=== PATIENT | female | born 1975 | race Caucasian/White ===

== ENCOUNTER → 2024-01-29 13:33 | Outpatient (REF) | payer OTHER, SELFPAY | LOC: HWRAD 13:33 | PROVIDERS: ATTENDING PHYSICIAN Family Medicine | DX: D17.23 Benign lipomatous neoplasm of skin and subcutaneous tissue of right leg (principal); R22.41 Localized swelling, mass and lump, right lower limb | CPT/HCPCS: 76882 ==

== ENCOUNTER 2024-11-16 15:36 | Emergency (ER) | payer OTHER, SELFPAY ==
[2024-11-16 15:41] VITALS: BP 142/90
[2024-11-16 16:19] LABS: % Basophils 1.1 % (0-2); % Immature Granulocytes 0.1 % (0-0.5); % Lymphocytes 20.2 % (20.5-51.1); % Monocytes 6.9 % (1.7-9.3); % Neutrophils 70.7 % (42.2-75.2); Absolute Basophils 0.1 10^3/uL (0-0.2); Absolute Eosinophils 0.1 10^3/uL (0-0.7); Absolute Lymphocytes 1.6 10^3/uL (1.2-3.4); Absolute Monocytes 0.5 10^3/uL (0.1-0.6); Absolute Neutrophils 5.6 10^3/uL (1.4-6.5); Hemoglobin 13.7 g/dL (12.0-16.0); Mean Corp Hgb Conc. 33.4 g/dL (33.0-37.0); Mean Corpuscular Hgb 29.7 pg (27.0-31.0); Mean Corpuscular Volume 88.7 fL (81.0-99.0); Mean Platelet Volume 11.1 fL (7.4-10.4); Nucleated Red Blood Cells % 0 %; Platelet Count 238 10^3/uL (130-400); Red Blood Cell Count 4.62 10^6/uL (4.20-5.40); Red Cell Dist. Width 13.4 % (11.5-14.5); White Blood Cell Count 7.9 10^3/uL (4.8-10.8)
[2024-11-16 16:31] LABS: AST (SGOT) 25 U/L (14-36); Albumin 4.7 g/dl (3.5-5.0); Alkaline Phosphatase 70 U/L (38-126); Blood Urea Nitrogen 14 mg/dl (7-17); Carbon Dioxide 27 mmol/L (22-30); Chloride 107 mmol/L (98-107); Glucose 107 mg/dl (70-99); INR 1.09; PT 14.4 Sec (11.4-14.6); Sodium 142 mmol/L (135-145); Total Bilirubin 0.6 mg/dl (0.2-1.3); Total Protein 7.5 g/dl (6.3-8.2); eGFR > 60.00
[2024-11-16 16:32] LABS: APTT 28.1 Sec (23.4-35.0)
[2024-11-16 16:41] LABS: ALT (SGPT) 18 U/L (0-35); Calcium 10.4 mg/dl (8.4-10.2)
[2024-11-16 16:43] LABS: Troponin I < 0.012 ng/ml
[2024-11-16 16:56] VITALS: BP 145/89
[2024-11-16 17:00] VITALS: BP 143/91
[2024-11-16 17:52] LABS: D-Dimer 0.88 ug/mlFEU (0.00-0.50)
[2024-11-16 18:00] VITALS: BP 139/92
--- NOTE | 2024-11-16 18:23 | ED.GENMED ---
History of Present Illness
General
Chief Complaint: Chest Pain
Source: patient
Exam Limitations: none
Time Seen by Provider: 11/16/24 18:05
History of Present Illness
History of Present Illness:
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 Patient returned yesterday from a 10-day trip to [place]. She forgot to take her Eliquis with her on the trip. She started to experience
some indigestion in the center of her chest with some nausea yesterday while she was still on the plane. The symptoms continued today and she is now experiencing some shortness of breath with exertion. Symptoms feel somewhat similar to when she
had a pulmonary embolus in the past which she decided to come to the ED. Her last PE was about 10 years ago. She denies any calf pain or leg swelling.
Past History
Past History
ED Past Medical History: Other (DVT)
ED Past Surgical History: None
Social History
Tobacco: Non-smoker
Alcohol: None
Phy Exam
General Physical Exam
General Presentation: well appearing and no apparent distress
General Skin: warm and dry
General Habitus: normal
General Mental: alert
ENT Exam
ENT Exam: normocephalic
Cardiovascular Exam
Cardiovascular Exam: regular rate/rhythm, no edema and no murmur
Pulmonary Exam
Pulmonary Exam: lungs clear, no respiratory distress, no rales, no crackles, no rhonchi and no wheezing
Gastrointestinal Exam
Gastrointestinal Exam: non tender, soft and non distended
Neurological Exam
Neurological Exam: alert
Claus Coma Scale
Eye Opening: Spontaneous
Verbal Response: Oriented
Motor Response: Obeys Commands
GCS Total Score: 15
Skin Exam
Skin Exam: normal color and warm/dry
Psychiatric Exam
Psychiatric Exam: normal mood/affect
Scores
Heart Score for Chest Pain Patients
STEMI patient?: No
History: Slightly or Non-Suspicious
ECG: Normal
Age: >45 - <65 years
Risk Factors: No Risk Factors
Troponin: </= Normal Limit
Heart Score for Chest Pain Patients: 1
Heart Score Risk: 2.5% MACE over next 6 weeks
Course
Orders/Labs/Results
Orders:
Orders
11/16/24 15:37
Electrocardiogram (*1) Urgent
Reason for Study: Chest Pain
EKG- Treatment ONCE
11/16/24 15:54
Complete Blood Count/With Diff Urgent
Comprehensive Metabolic Panel Urgent
D-Dimer Urgent
Comment: ADD ON
Lipase Urgent
Comment: ADD ON
PT/INR [Prothrombin Time] Urgent
Is patient on Coumadin/Warfarin?: No
Comment: [email or web address]
PTT Urgent
Troponin I Urgent
11/16/24 17:22
Add On- LAB Stat
Tests Added?: d-dimer
11/16/24 18:32
CT Chest PE Study Urgent
Comment:
Reason For Exam: CP, elevated D-dimer
11/16/24 19:07
Add On- LAB Urgent
Tests Added?: lipase
11/16/24 20:11
Famotidine [Pepcid] 20 mg IV NOW STA
Ondansetron Injectable [Zofran] 4 mg IV NOW STA
11/16/24 20:37
Mag Hydrox/Al Hydrox/Simeth [Maalox] 30 ml PO NOW STA
Sucralfate Suspension [Carafate Suspension] 1 gm PO NOW STA
US Abdomen Complete/Upper Urgent
Comment:
Reason For Exam: epigastric pain
Abnormal Lab Results
11/16/24
15:54
MPV 11.1 H fL
(7.4-10.4)
Lymphocytes % 20.2 L %
(20.5-51.1)
D-Dimer 0.88 H ug/mlFEU
(0.00-0.50)
Glucose 107 H mg/dl
(70-99)
Calcium 10.4 H mg/dl
(8.4-10.2)
11/16/24 15:54
11/16/24 15:54
Vital Signs
Initial and Last Documented VS:
Initial Vital Signs
Temp Pulse Resp BP Pulse Ox
98.8 F 66 16 142/90 100
11/16/24 15:41 11/16/24 15:41 11/16/24 15:41 11/16/24 15:41 11/16/24 15:41
Last Documented Vital Signs
Temp Pulse Resp BP Pulse Ox
98.8 F 55 15 139/92 99
11/16/24 15:41 11/16/24 18:15 11/16/24 18:15 11/16/24 18:00 11/16/24 18:24
MDM/Problems Addressed
Differential Diagnosis Includes:
49yoF here with indigestion, nausea, and exertional dyspnea. Worried she has a PE as she forgot to take her Eliquis on a 10 day trip to [place]. VSS and oxygen saturation 100% on room air. She is well appearing in no distress. Differential diagnosis
includes: ACS, PE, GERD, biliary colic
Initial ED plan: Workup initiated in triage. EKG shows NSR without ischemic changes and troponin WNL. D-dimer mildly elevated at 0.88. Will proceed with CTA chest and add lipase.
*Pulse Oximetry
SaO2: 99
Oxygen Mode of Delivery: Room air
Patient hypoxic: no (100%)
*EKG
Interpreted by ED Provider?: Yes
EKG Intrepretation Date: 11/16/24
Heart Rate: 57
Rate: bradycardiac
Rhythm: sinus
[place]: normal axis
Interval: normal interval
QRS Pattern: right bundle branch block (incomplete)
Ischemia: no ischemia
*Critical Care Note
Total Time (30-74mins, 75-104mins- exclusive of procedures): Not Applicable
Update Note
Update Note:
CT is negative for pulmonary embolism. Lipase WNL. Patient continues to complain of indigestion and points to epigastric region. Upper abdominal ultrasound obtained for completeness. No evidence of cholelithiasis and visualized pancreas appears
normal. There are two echogenic lesions in the liver, most likely representing hepatic hemangiomas seen incidentally. Patient informed of this finding and was given a copy of the radiology report. No indication for hospitalization. Suspect GERD and
supportive care reviewed. Advised f/u with PCP and ED return precautions discussed. Patient discharged in stable condition.
ED Attending Note
-
Portions of this chart may have been created with voice recognition software.� Occasional wrong word or��sound alike� substitutions may have occurred due to the inherent limitations of voice recognition software.
Discharge Plan
Departure
Patient Disposition: Home (Routine Discharge)
Date of Disposition: 11/16/24
Time of Disposition: 21:53
Patient with high blood pressure during this ER visit?: Yes
Discharge Problem:
Indigestion
Instructions: Chest Pain PCP Follow Up
Prescriptions:
No Action
sertraline 100 MG tablet
200 mg PO DAILY
apixaban [Eliquis] 5 MG tablet
5 mg PO BID
albuterol sulfate [Proventil HFA] 90 MCG/PUFF HFA aerosol inhaler
1 puff inhalation Q4HPRN PRN (Reason: shortness of breath) Qty: 1 0RF
Referrals:
Hina Flores DO [Family Provider, Family Practice]
Activity Restrictions/Additional Instructions:
Try taking Pepcid 20mg twice a day as needed.
Please call your family doctor tomorrow to schedule a follow-up appointment. Return to the ER with any new or worsening symptoms.
Interventions
Interventions:
*Risk Screen - Suicide Last Done: 11/16/24 15:44
*General Assessment Last Done: 11/16/24 17:48
*Neglect/Abuse Screening Last Done: 11/16/24 15:44
*ED- Fall Risk Assessment Last Done: 11/16/24 17:48
*ED COVID-19 Vaccine History Last Done: 11/16/24 17:48
*Nursing Disposition Last Done: 11/16/24 22:01
ED- Cardiac Assessment Last Done: 11/16/24 17:48
Discharge Date and Time
Discharge Date/Time: 11/16/24 22:02
Print Language: [id number]
[2024-11-16 19:48] LABS: Lipase 147 U/L (23-300)
[2024-11-16] MEDS: ZOFRAN 4 MG IV (20:21)
[2024-11-16] MEDS: PEPCID 20 MG IV (20:21)
[2024-11-16] MEDS: MAALOX 30 ML PO (21:48)
[2024-11-16] MEDS: CARAFATE SUSPENSION 1 GM PO (21:48)
== END 2024-11-16 22:02 | disposition home or self-care (01) ==
LOC: EMR 15:36
PROVIDERS: Emergency Medicine; EMERGENCY PHYSICIAN Student in an Organized Health Care Education/Training Program; FAMILY PHYSICIAN Family Medicine
DX: K30 Functional dyspepsia (principal); Z86.711 Personal history of pulmonary embolism; Z86.718 Personal history of other venous thrombosis and embolism; Z79.01 Long term (current) use of anticoagulants
CPT/HCPCS: 96374; 96375; 99284; 71275; 76700; 80053; 83690; 84484; 85025; 85379; 85610; 85730; 93005; Q9967

== ENCOUNTER → 2024-12-18 09:06 | Outpatient (REF) | payer OTHER, SELFPAY | LOC: HWWDC 09:06 | PROVIDERS: ATTENDING PHYSICIAN Family Medicine | DX: Z12.31 Encounter for screening mammogram for malignant neoplasm of breast (principal) | CPT/HCPCS: 77063; 77067 ==